=== PATIENT | female | born 1940 | race Caucasian/White ===

== ENCOUNTER 2018-03-13 12:24 | Emergency (ER) | payer MEDICARE, OTHER ==
[2018-03-13 12:46] VITALS: TEMP 96.1
[2018-03-13 13:23] LABS: BASOPHILS % (AUTO) 0 % (0-3); EOSINOPHILS % (AUTO) 1 % (0-9); HEMATOCRIT 35 % (35-47); HEMOGLOBIN 12.1 gm/dl (12.0-15.5); LYMPHOCYTES % (AUTO) 9.25 % (10-50); MEAN CORPUSCULAR HEMOGLOBIN 32.2 pg (27.0-32.0); MEAN CORPUSCULAR HGB CONC 34.4 gm/dl (32.0-36.0); MEAN CORPUSCULAR VOLUME 94 fL (81-99); MONOCYTES % (AUTO) 7.6 % (0-12); NEUTROPHILS % (AUTO) 81.8 % (37-80)
[2018-03-13 13:35] LABS: APPEARANCE,URINE Clear; BILIRUBIN,URINE NEGATIVE (NEGATIVE); COLOR,URINE Yellow; GLUCOSE, URINE (UA) NEGATIVE (NEGATIVE); KETONES,URINE TRACE (NEGATIVE); LEUKOCYTE ESTERASE ,URINE NEGATIVE (NEGATIVE); NITRATE,URINE NEGATIVE (NEGATIVE); OCCULT BLOOD,URINE NEGATIVE (NEG-TRACE); PH,URINE 7.5
[2018-03-13 13:50] LABS: BACTERIA 1+ (< 1+); CRYSTALS NEGATIVE (0-3 AVE/HPF)
[2018-03-13 14:22] VITALS: RESP 18; O2SAT 97
[2018-03-13 14:32] VITALS: BP 123/74; PULSE 65
== END 2018-03-13 14:16 | disposition home or self-care (01) | DRG 556 ==
LOC: ED 12:24
DX: M25.551 Pain in right hip (principal); R44.3 Hallucinations, unspecified; W19.XXXA Unspecified fall, initial encounter; I10 Essential (primary) hypertension
CPT/HCPCS: 36415; 81001; 85025; 87077; 87088; 87186; 87430; 99283

== ENCOUNTER 2018-03-28 14:13 | Emergency (ER) | payer MEDICARE, OTHER ==
[2018-03-28 14:35] VITALS: RESP 18; TEMP 96.9
[2018-03-28 15:00] LABS: LACTIC ACID 1.2 mMol/L (0.0-2.0)
[2018-03-28 15:01] LABS: BASOPHILS % (AUTO) 1 % (0-3); EOSINOPHILS % (AUTO) 2 % (0-9); HEMATOCRIT 35 % (35-47); HEMOGLOBIN 12.4 gm/dl (12.0-15.5); LYMPHOCYTES % (AUTO) 11.8 % (10-50); MEAN CORPUSCULAR HEMOGLOBIN 32.2 pg (27.0-32.0); MEAN CORPUSCULAR HGB CONC 34.9 gm/dl (32.0-36.0); MEAN CORPUSCULAR VOLUME 92 fL (81-99); MONOCYTES % (AUTO) 8.7 % (0-12); NEUTROPHILS % (AUTO) 76.8 % (37-80)
[2018-03-28 15:08] LABS: APPEARANCE,URINE Slightly Cloudy; BILIRUBIN,URINE NEGATIVE (NEGATIVE); COLOR,URINE Yellow; GLUCOSE, URINE (UA) NEGATIVE (NEGATIVE); KETONES,URINE NEGATIVE (NEGATIVE); LEUKOCYTE ESTERASE ,URINE NEGATIVE (NEGATIVE); NITRATE,URINE NEGATIVE (NEGATIVE); OCCULT BLOOD,URINE NEGATIVE (NEG-TRACE); PH,URINE 6.5
[2018-03-28 15:09] LABS: CALCIUM 10.8 mg/dl (8.5-10.1); CARBON DIOXIDE 29.6 mEq/L (21-32); CREATININE 0.82 mg/dl (0.60-1.00); POTASSIUM 3.7 mMol/L (3.5-5.1)
[2018-03-28 15:30] LABS: BACTERIA 1+ (< 1+); CRYSTALS NEGATIVE (0-3 AVE/HPF); EPITHELIAL CELLS 0-1 (SQUAMOUS); RBC,URINE 0-1 (0-3AV/HPF); WBC,URINE 0-2 (0-5AV/HPF)
[2018-03-28] MEDS ORDERED: SODIUM CHLORIDE 0.9% 1000ML 1,000 ML IV ONE (15:39)
[2018-03-28 17:04] VITALS: O2SAT 93
[2018-03-28 17:07] VITALS: BP 149/84; PULSE 93
== END 2018-03-28 17:35 | disposition short-term general hospital (02) | DRG 947 ==
LOC: ED 14:13
DX: R41.0 Disorientation, unspecified (principal); S72.011A Unspecified intracapsular fracture of right femur, initial encounter for closed fracture; W19.XXXA Unspecified fall, initial encounter
CPT/HCPCS: 36415; 71045; 73502; 80048; 81001; 85025; 96365; 99283; 99285